=== PATIENT | female | born 1955 | race Caucasian/White ===

== ENCOUNTER 2021-12-01 19:54 | Emergency (ER) | payer MEDICAID, OTHER ==
[~2021-12-01] VITALS: Ht 162.6 cm; Wt 68.2 kg
[2021-12-01] MEDS ORDERED: ATOR10TA84 PO (20:05)
[2021-12-01 20:59] VITALS: BP 153/86
[2021-12-01] MEDS ORDERED: PERTUSS(ACELL),DIPH,TET VAC/PF 0.5 ML SYRINGE IM. ONE (21:00)
[2021-12-01] MEDS ORDERED: CEPH500C3 PO (21:02)
== END 2021-12-01 21:10 | disposition home or self-care (01) ==
LOC: EMS 19:58
DX: S61.211A Laceration without foreign body of left index finger without damage to nail, initial encounter (principal); W26.0XXA Contact with knife, initial encounter; Y93.89 Activity, other specified; Y92.89 Other specified places as the place of occurrence of the external cause; Y99.8 Other external cause status
CPT/HCPCS: 99281; 99282; Z7502